=== PATIENT | male | born 1940 | race Caucasian/White ===

== ENCOUNTER 2020-07-05 08:45 | Inpatient (IN) | payer OTHER ==
[~2020-07-05] VITALS: Ht 170.2 cm; Wt 131.0 kg
[2020-07-05 08:49] VITALS: BP 124/45
[2020-07-05 09:34] LABS: BASOPHILS 0.5 % (0.0-2.0); EOSINOPHILS 0.4 % (0.0-3.0); HEMATOCRIT 28.9 % (42.0-52.0); HEMOGLOBIN 9.1 gm/dL (14.0-18.0); LYMPHOCYTES 8.8 % (24.0-44.0); MCH 25.9 pg (26.0-34.0); MCHC 31.6 g/dL (28.0-37.0); MCV 82.2 fL (80.0-100.0); MONOCYTES 7.3 % (1.0-8.0); PLATELET COUNT 332 thou/uL (150-400); RBC 3.51 mil/uL (4.50-6.00); RDW 19.4 % (10.5-14.5); WBC 7.2 thou/uL (4.0-11.0)
[2020-07-05 09:39] LABS: ANION GAP 12 mmol/L (7-16); BUN 61 mg/dL (7-18); CALCIUM 8.8 mg/dL (8.5-10.1); CHLORIDE 106 mmol/L (98-107); CO2 20 mmol/L (21-32); CREATININE 2.7 mg/dL (0.7-1.3); GLUCOSE 169 mg/dL (74-106); POTASSIUM 5.4 mmol/L (3.5-5.1); SODIUM 138 mmol/L (136-145)
[2020-07-05 09:48] LABS: INR 1.46; PROTIME 15.6 Seconds (9.3-11.4)
[2020-07-05 09:53] LABS: ALBUMIN 3.5 g/dL (3.4-5.0); SGOT 36 U/L (15-37); SGPT 30 U/L (30-65); TOTAL BILIRUBIN 0.8 mg/dL (0.2-1.0); TOTAL PROTEIN 6.9 g/dL (6.4-8.2); TROPONIN-I <0.06 ng/mL (<0.06)
[2020-07-05 11:51] LABS: ANISOCYTOSIS 2+; BURR CELLS FEW; OVALOCYTES FEW; POIKILOCYTOSIS 1+; SCHISTOCYTES OCCASIONAL
[2020-07-05 11:56] VITALS: BP 124/45
[2020-07-05 12:45] VITALS: BP 122/44
[2020-07-05 13:40] VITALS: BP 100/72
[2020-07-05 13:43] LABS: % SATURATION 5 % (20-39); IRON 14 ug/dL (65-175); TIBC 302 ug/dL (250-450)
[2020-07-05] MEDS ORDERED: LOSARTAN POTASS50 MG PO (13:43)
[2020-07-05] MEDS ORDERED: GLYBURIDE 5 MG T5 M1 PO (13:43)
--- NOTE | 2020-07-05 14:30 | EKG ---
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
--- NOTE | 2020-07-05 15:14 | NUR ---
RECEIVED PT FROM THE ER; PT IS AXOX4, HOWEVER IS SOMNOLENT FROM MUSCLE RELAXER GIVEN IN ER. PT SON AT THE BEDSIDE. ADMISSION COMPLETED. PT HAS SINUS ZACH/AFIB ON MONITOR. PT IS EXPERIENCING WEAKNESS, UNABLE TO SIT OR STAND FOR LONG TO VOID IN URINAL. PT IS SHORT OF BREATH WITH ACTIVITY. SON REPORTS PT IS WEARING CPA (FROM HOME) EVEN AT REST AT HOME. FALL PRECAUTIONS IN PLACE.
[2020-07-05 16:52] LABS: FOLIC ACID 16.8 ng/mL (8.6-58.9)
--- NOTE | 2020-07-05 17:38 | EKG ---
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1940 Requested By: Tung Rodgers Order Number: [id number] MD: Arash Lima Measurements Intervals [place] Rate: 51 P: [place]: QRS: 17 QRSD: 125 T: 266 QT: 497 QTc: 458 Interpretive Statements Suspect Junctional rhythm Left bundle branch block Compared to ECG 07/05/2020 08:51:23 Junctional rhythm now present Left bundle-branch block now present Atrial fibrillation no longer present ST (T wave) deviation no longer present Electronically Signed On 07-05-2020 17:38:27 CDT by Arash Lima [email or web address] <ELECTRONICALLY SIGNED> By: Arash Lima MD, FACC 07/05/20 1738 [id number] [id number] Arash Lima MD, [facility] /EPI
[2020-07-05 19:18] VITALS: BP 104/40
[2020-07-06 02:06] LABS: GLYCOHEMOGLOBIN (HGB A1C) 6.8 % (4.8-5.6)
--- NOTE | 2020-07-06 03:06 | NUR ---
PT RECEIVED 80MG IV LASIX EARLIEAR IN AFTERNOON WITH NO URINE OUTPUT, NOTIFIED CARDIOLOGY RECEIVED ORDER TO BLADDER SCAN AND AND PLACE FLORES IF NEEDED AND NOTIFY NEPHROLOGY IF NO URINE OUT PUT, VSS, PRN PAIN MED GIVEN FOR C/O HIP PAIN, PT INCON'T OF BOWEL AND BLADDER BEFORE BLADDER SCAN WAS DONE, POST VOID BLADDER SCAN SHOWED 20ML, PT REPOSITIONED NEEDED STATES HIS PAIN IS BETTER IF HE LAYS ON HIS SIDE, SLEEPING WITH OWN CPAP IN USE, WILL CON'T TO MONITOR PER PPOC.
[2020-07-06 04:21] VITALS: BP 141/45
[2020-07-06 05:44] LABS: ABSOLUTE NEUTROPHILS 6.7 thou/uL (1.4-8.2); BASOPHILS 0.1 % (0.0-2.0); HEMATOCRIT 27.3 % (42.0-52.0); HEMOGLOBIN 8.7 gm/dL (14.0-18.0); LYMPHOCYTES 4.6 % (24.0-44.0); MCH 25.9 pg (26.0-34.0); MCHC 31.9 g/dL (28.0-37.0); MCV 80.9 fL (80.0-100.0); MONOCYTES 1.7 % (1.0-8.0); PLATELET COUNT 289 thou/uL (150-400); POLYS 93.6 % (36.0-66.0); RBC 3.37 mil/uL (4.50-6.00); RDW 18.5 % (10.5-14.5); WBC 7.1 thou/uL (4.0-11.0)
[2020-07-06 05:47] LABS: CALCIUM 8.3 mg/dL (8.5-10.1); CREATININE 3.5 mg/dL (0.7-1.3); MAGNESIUM 2.2 mg/dL (1.8-2.4); POTASSIUM 5.1 mmol/L (3.5-5.1)
[2020-07-06 07:18] VITALS: BP 116/56
[2020-07-06 10:54] LABS: URINE BILIRUBIN NEGATIVE (Negative); URINE BLOOD NEGATIVE (Negative); URINE CLARITY CLEAR; URINE COLOR YELLOW; URINE GLUCOSE-RANDOM* NEGATIVE (Negative); URINE KETONES NEGATIVE (Negative); URINE LEUKOCYTES TRACE (Negative); URINE NITRITE NEGATIVE (Negative); URINE PROTEIN (DIPSTICK) NEGATIVE (Negative); URINE SPECIFIC GRAVITY 1.025 (1.005-1.035); URINE UROBILINOGEN 0.2 E.U./dl (0.2-1.0)
[2020-07-06 10:57] LABS: URINE CREATININE-RANDOM* 154.9 mg/dL
[2020-07-06 11:17] VITALS: BP 125/33
--- NOTE | 2020-07-06 11:21 | NUR ---
PT IS AXOX4, PLEASANT. SON AT THE BEDSIDE. DR PASCUAL, DR DIANE, AND DR WHITFIELD CONSULTED. BLADDER SCAN CONDUCTED, PT HAD 270ML. FLORES CATH PLACED AND PT IS ON STRICT I&Os. POC IS PPM PLACED TOMORROW 07/07/20. CONTINUE TO MONITOR BP/HR/BLOOD SUGAR. FALL PRECAUTIONS IN PLACE.
--- NOTE | 2020-07-06 14:01 | NUR ---
met with patient and son at bedside. Patient admits with SOA plan pacemaker in am. Patient currently on oxygen he does not use a home. Patient resides in patio home with . He uses a walker at home and community. Shower has bench. Patient cont to drive. No hx of HH or rehab. Cont to follow for dc needs.
[2020-07-06 15:15] VITALS: BP 120/39
[2020-07-06 19:33] VITALS: BP 141/41
--- NOTE | 2020-07-06 23:20 | NUR ---
ASSUMED PT CARE AT 1900, PT IS AWAKE, ALERT AND ORIENTED, SITTING AT THE EDGE OF BED, FLORES IN PLACE DRAINING ANUPAMA URINE, STILL SOB, ON 5L NC, O2SATS STABLE AT 93-94%, FLORES CATHETER NOTED TO BE DRAINING BLOODY URINE, FLUSHED THE CATHER AND NOTIFIED BUN ICER, NO ORDERS RECEIVED, WILL CONTINUE TO MONITOR, DENIES PAIN, PT RESTING IN BED, CPAP ON, NO DISTRESS NOTED
[2020-07-07] VITALS (8 sets, daily range): BP systolic 100–141; BP diastolic 41–59
[2020-07-07 05:05] LABS: ALBUMIN 3.3 g/dL (3.4-5.0); CALCIUM 8.2 mg/dL (8.5-10.1); CREATININE 4.1 mg/dL (0.7-1.3); PHOSPHORUS 6.3 mg/dL (2.6-4.7)
[2020-07-07 06:07] LABS: HEMATOCRIT 26.4 % (42.0-52.0); HEMOGLOBIN 8.2 gm/dL (14.0-18.0); MCH 25.2 pg (26.0-34.0); MCHC 31.2 g/dL (28.0-37.0); MCV 80.8 fL (80.0-100.0); RBC 3.27 mil/uL (4.50-6.00); RDW 18.9 % (10.5-14.5); WBC 14.2 thou/uL (4.0-11.0)
--- NOTE | 2020-07-07 09:03 | NUR ---
chart review. pt going for pacemaker today. He a & o x 3, able to make his needs now. cm visit rolando at bedside, cm cont to wear face mask and shield during visit. intro to cm and dcp. he reported " lives home with , he is independent with ald's, uses cpap at night. manage own medication and drives vehicle"/rolando. noted he has sitting on edge of bed, stable , has o2 per nc on 3 L. no home oxygen at home, also noted has padilla cath. will need to see if can be weaned off o2 and then dc home no needs with follow up appointments as ordered by MD's.
--- NOTE | 2020-07-07 16:28 | NUR ---
ASSESSMENT CHARTED. PT ALERT AND ORIENTED. VSS. PACEMAKER INCISION C/D/I WITH DERMABOND. PRN PAIN MED GIVEN FOR BUTTOCK PAIN WITH PARTIAL RELIEF. BEDREST AT THIS TIME.
[2020-07-08 00:21] VITALS: BP 116/49
[2020-07-08 03:33] LABS: ALBUMIN 3.3 g/dL (3.4-5.0); CREATININE 3.4 mg/dL (0.7-1.3); PHOSPHORUS 5.8 mg/dL (2.6-4.7); POTASSIUM 4.8 mmol/L (3.5-5.1)
[2020-07-08 04:56] VITALS: BP 128/45
--- NOTE | 2020-07-08 05:40 | NUR ---
PT STATUS POST PACE MAKER PLACEMENT, PT A&OX4, SR ON THE MONITOR, ASSESSMENTS CHARTED, PACEMAKER SITE TO THE LEFT CHEST CDI, NO HEMATOMA, DENIES CHEST PAIN OR PALPITATIONS, PRN PAIN MEDS GIVEN FOR PAIN TO THE BUTTOCKS WITH RELIEF, DENIES CONCERNS, WILL PASS ON REPORT
[2020-07-08 09:14] VITALS: BP 136/51
[2020-07-08 12:45] VITALS: BP 112/51
--- NOTE | 2020-07-08 14:52 | NUR ---
PT ALERT AND ORIENTED. VSS. UP IN THE CHAIR THIS SHIFT. PACE MAKER INCISION C/D/I WITH DERMABOND. SOB NOTED WITH ACTIVITY. RT TREATMENT PROVIDED ORDERED. NO CONCERNS AT THIS TIME.
[2020-07-08 16:00] VITALS: BP 122/62
[2020-07-08 19:03] VITALS: BP 122/47
[2020-07-09 03:49] VITALS: BP 115/59
[2020-07-09 03:57] LABS: ALBUMIN 3.1 g/dL (3.4-5.0); CALCIUM 8.1 mg/dL (8.5-10.1); CREATININE 2.9 mg/dL (0.7-1.3); POTASSIUM 4.7 mmol/L (3.5-5.1)
--- NOTE | 2020-07-09 04:57 | NUR ---
ALERT AND ORIENTED, SR/ APACED ON TELE, PACEMAKER TO THE LEFT CHEST CDI, PRN PAIN MEDS GIVENX1, WITH RELIEF, REMAINS ON 4L O2 NC, CPAP AT NIGHT, O2SAT STABLE IN THE LOW 90S, DENIES CONCERNS, PROGRESSING SLOWLY TOWARDS POC
[2020-07-09 08:00] VITALS: BP 132/56
[2020-07-09 12:42] VITALS: BP 136/59
--- NOTE | 2020-07-09 15:29 | NUR ---
ASSESSMENT CHARTED. PT ALERT AND ORIENTED. VSS. PRN PAIN MED GIVEN WITH PARTIAL RELIEF. UP IN THE CHAIR THIS SHIFT. SOB NOTED WITH ACTIVITY. PT REPORT FEELING MUCH BETTER TODAY. PT PROGRESSING WELL TOWARDS DISCHARGE GOAL.
[2020-07-09 16:08] VITALS: BP 125/62
[2020-07-09 20:10] VITALS: BP 170/62
[2020-07-10 05:32] VITALS: BP 179/62
[2020-07-10 08:00] VITALS: BP 151/58
--- NOTE | 2020-07-10 08:15 | NUR ---
HAD STOOLS THIS SHIFT,UP TO THE BEDSIDE COMMODE.PT ASKED FOR IMMODIUM,CONTACTED [facility]RE[facility]IC[facility].UNABLE TO OBTAIN.PT AWARE.
[2020-07-10 09:38] LABS: CALCIUM 8.3 mg/dL (8.5-10.1); CREATININE 2.2 mg/dL (0.7-1.3); POTASSIUM 3.8 mmol/L (3.5-5.1)
[2020-07-10 11:10] VITALS: BP 135/49
--- NOTE | 2020-07-10 15:17 | NUR ---
PT ALERT AND ORIENTED. PLEASANT AND COOPERATIVE WITH CARES. VSS. PRN PAIN MED GIVEN WITH PARTIAL RELIEF. UP IN THE CHAIR THIS SHIFT. EVALUATED BY PT/OT. NO CONCERNS AT THIS TIME. PT PROGRESSING WELL TOWARDS DISCHARGE GOAL.
[2020-07-10 15:30] VITALS: BP 128/50
--- NOTE | 2020-07-10 17:04 | NUR ---
met with patient and discussed post acute care. Patient reports he does not think he needs post acute care. Patient reports his son and able to assist at discharge. no steps at home and has a rolator walker. Gave [employer] list to review if he changes his mind.
[2020-07-10 19:50] VITALS: BP 178/60
[2020-07-11 04:00] VITALS: BP 129/53
--- NOTE | 2020-07-11 04:44 | NUR ---
PAIN WELL CONTROLLED.ALERT,ORIENTED.FLORES TO DD.MONITOR SHOWS V PACED.O2 2L NC.POC CONTINUED.
--- NOTE | 2020-07-11 09:32 | NUR ---
PATIENT UP TO CHAIR FOR BREAKFAST. PRN HYDROCODONE GIVEN FOR BUTTOCK PAIN. PATIENT REMAINS ON 2L NC. CONTINUOUS PULSE OX MONTIOR. ONETIME DOSE OF IV LASIX ORDERED BY DR. DIANE. PLAN FOR PATIENT TO DISCHARGE TO REHAB WHEN FACILITY AVAILABLE. FALL PRECAUTIONS IN PLACE.
[2020-07-11 09:34] VITALS: BP 181/58
--- NOTE | 2020-07-11 12:21 | NUR ---
spoke with patient and son at bedside. Patient reports he wants post acute care after speaking with phys and son. Interest in [facility]. Referrals sent for review. Son is going to review facilities on line. Notified RN for COVID test.
[2020-07-11] MEDS ORDERED: DEMADEX20 MG PO (12:34)
[2020-07-11] MEDS ORDERED: METOPROLOL SUCC50 MG PO (12:34)
[2020-07-11] MEDS ORDERED: LIPITOR10 MG PO (12:34)
[2020-07-11] MEDS ORDERED: ELIQUIS2.5 MG PO (12:34)
[2020-07-11] MEDS ORDERED: NORVASC5 MG PO (12:34)
[2020-07-11] MEDS ORDERED: PROTONIX40 M2 PO (12:34)
[2020-07-11] MEDS ORDERED: HYDRALAZINE 5050 MG PO (12:34)
[2020-07-11] MEDS ORDERED: BAYER CHEWABLE81 MG PO (12:34)
[2020-07-11] MEDS ORDERED: PACERONE 200 M200 M1 PO (12:34)
[2020-07-11] MEDS ORDERED: PROTONIX40 M4 PO (12:34)
[2020-07-11 12:40] VITALS: BP 151/63
--- NOTE | 2020-07-11 16:17 | NUR ---
FAXED REFERRAL TO [facility] SPOKE WITH BREANA IN ADM THEY CAN ACCEPT AND SHE IS GOING TO CALL PT'S SON. FAXED REFERRAL TO [facility] SPOKE WITH BLANCA IN ADN SHE CAN ACCEPT ALSO. /SON WILL BE NOTIFIED THAT BOTH FACILITIES CAN ACCEPT AND WILL WAIT FOR THEIR DECISION.
--- NOTE | 2020-07-11 17:19 | NUR ---
spoke with son first choice is [facility]. Left message for facility to seek auth.
--- NOTE | 2020-07-11 17:56 | NUR ---
FLORES DISCONTINUED AT 1730
[2020-07-11 20:15] VITALS: BP 171/78
[2020-07-12 00:18] VITALS: BP 178/64
[2020-07-12 00:26] VITALS: BP 178/64
[2020-07-12 04:54] VITALS: BP 149/56
--- NOTE | 2020-07-12 05:29 | NUR ---
patient aox4 makes needs known. patient gets soa with activites. patient incontient this shift pericare and barrier cream applied as needed. patient in bed asleep at this time breathing regular and unlaboured.
[2020-07-12 08:00] VITALS: BP 161/57
[2020-07-12 09:44] LABS: HEMATOCRIT 30.8 % (42.0-52.0); HEMOGLOBIN 9.6 gm/dL (14.0-18.0); MCH 24.9 pg (26.0-34.0); MCHC 31.1 g/dL (28.0-37.0); RBC 3.85 mil/uL (4.50-6.00); RDW 18.5 % (10.5-14.5); WBC 11.7 thou/uL (4.0-11.0)
[2020-07-12 09:53] LABS: CALCIUM 8.1 mg/dL (8.5-10.1); CREATININE 1.9 mg/dL (0.7-1.3)
[2020-07-12 10:02] LABS: POTASSIUM 2.8 mmol/L (3.5-5.1)
[2020-07-12] MEDS ORDERED: KLOR-CON M2020 MEQ PO (10:20)
--- NOTE | 2020-07-12 11:15 | NUR ---
PATIENT STATING HE FEELS PRESSURE WHEN URINATING. NOTIFED DR. DIANE. GIVEN DOSE OF FLOMAX AND BLADDER SCANNED. BLADDER SCAN AMOUNT [address] ORDERS TO PL[address] FLORES AND CONSULT UROLOGY. UROLOGY TO SEE PATIENT TODAY. 16FR FLORES PLACED WITH NO DIFFICULTIES. 1400 URINE OUT IMMEDIATELY POST INSERTION.
[2020-07-12] MEDS ORDERED: NORVASC10 MG PO (11:50)
[2020-07-12] MEDS ORDERED: LEVSIN0.125 MG PO (11:50)
[2020-07-12 12:16] VITALS: BP 133/49
[2020-07-12 13:35] LABS: URINE BILIRUBIN NEGATIVE (Negative); URINE BLOOD 3+ (Negative); URINE CLARITY CLEAR; URINE COLOR LIGHT PINK; URINE GLUCOSE-RANDOM* TRACE (Negative); URINE KETONES NEGATIVE (Negative); URINE LEUKOCYTES 1+ (Negative); URINE NITRITE NEGATIVE (Negative); URINE PROTEIN (DIPSTICK) NEGATIVE (Negative); URINE SPECIFIC GRAVITY 1.015 (1.005-1.035); URINE UROBILINOGEN 0.2 E.U./dl (0.2-1.0)
[2020-07-12 13:43] LABS: URINE RBC >20 Many /HPF (0-2)
[2020-07-12 13:44] LABS: BACTERIA 1-9 Few /HPF (None Seen); MUCUS 0-3 Light strn/LPF (None Seen); URINE WBC 0-5 Rare /HPF (0-5)
[2020-07-12 13:46] LABS: YEAST Present (None Seen)
[2020-07-12 13:47] LABS: CRYSTALS None Seen /LPF (None Seen); HYALINE CASTS 0-3 Few /LPF (None Seen); SQUAMOUS None Seen /LPF (0-3)
--- NOTE | 2020-07-12 15:18 | NUR ---
REMIV RECEIVED AUTH FAXED DC ORDERS/SUMMARY TO FACILITY SPOKE WITH BREANA IN ADM SHE RECEIVED ORDERS AND ARRANGED WC VAN FOR 1500 TODAY. PT'S SON NOTIFIED OF DC AND TIME OF TRANSPORT. UNIT NOTIFIED AND CHART COPY PER US. RN TO CALL REPORT TO [phone].
--- NOTE | 2020-07-12 16:05 | NUR ---
PATIENT DISCHARGED TO [facility]. REPORT CALLED TO RECIEVING RN. ALL BELONGINGS SENT WITH PATIENT. PATIENT D/C'D WITH FLORES IN PLACE PER UROLOGY ORDERS. TELE MONTIOR REMOVED. IV DISCONTINUED. PATIENT DENIED ANY NEEDS OR CONCERNS AT TIME OF DISCHARGE.
[2020-07-12] MEDS ORDERED: CEPHALEXIN500 MG PO (18:25)
--- NOTE | 2020-07-13 11:21 | NUR ---
Called and spoke to patient's now nurse at [facility] at [phone] by the name of Uziel updating him that the attending hospitalists has added Keflex 500mg PO BID for 14 days related to Urine Culture results. Order downloaded and sent to attention Uziel with fax number provided by Uzeil of: [phone].
--- NOTE | 2020-07-14 09:14 | P ---
[facility] [place] [address] PROCEDURE REPORT Name: TYREE ACOSTA Room #: 214-P [facility] IN M.R.#: [id number] Admission: 07/05/20 Attend Phys: Christal Dominguez MD Discharge: 07/12/20 Date of : 36 Report #: [id number] THIS REPORT FOR: cc: Ramon Albert Vincent R. DO Couchonnal, Luis F. MD ~ DATE OF SERVICE: 07/07/2020 PACEMAKER IMPLANTATION PREOPERATIVE DIAGNOSES: 1. Atrial fibrillation. 2. Sick sinus syndrome. 3. Tachycardia-bradycardia syndrome. 4. High-degree AV block. PROCEDURES PERFORMED: Dual-chamber pacemaker implantation. HISTORY: The patient an 80-year-old male recently diagnosed with atrial fibrillation and diastolic heart failure, who underwent a VALERIE-guided cardioversion at [facility]. He was noted to have some periods of bradycardia while there and his beta blockers were held. In followup, he was noted to be back in sinus rhythm with a long first-degree AV block. He presented to [facility] with acute on chronic diastolic heart failure in the setting of atrial fibrillation with a bradycardic response in the 30s and 40s. He also had acute renal failure. He is here for dual chamber pacemaker implantation. ANESTHESIA: The patient underwent MAC anesthesia with no anesthesia related complications. DESCRIPTION OF PROCEDURE: The patient underwent informed consent. We discussed the details of the procedure including the risks, which include but not limited to bleeding, infection, vascular damage, cardiac perforation, and pneumothorax. He understood these risks and is willing to proceed. The patient was brought to EP laboratory in fasting and sedated state, prepped and draped in a sterile fashion, underwent a venogram showing patency of left axillary vein with 5 mL of contrast. Next, he received IV vancomycin. Next, the lidocaine was injected below the level of left clavicle. Incision was made, pocket was created over prepectoral fascia and access was obtained twice to left axillary vein using the extrathoracic approach with sheaths positioned using the modified Seldinger technique. Next, under fluoroscopy, leads were positioned in the right ventricular apex and right atrial appendage. Surprisingly, the patient was noted to be back in sinus rhythm. His previous EKG showed that he [address] [address] PROCEDURE REPORT Name: TYREE ACOSTA Room #: 214-P [facility] IN .R.#: [id number] Admission: 07/05/20 Attend Phys: Christal Dominguez MD Discharge: 07/12/20 Date of : 36 Report #: [id number] was either in AFib or had atrial standstill. It was really hard to determine, but currently he is in sinus. The leads were sutured to the prepectoral fascia. Device connected. Tug test performed. Pocket was irrigated with vancomycin and the pocket closed in 2 layers. Surgical glue was placed to outer skin layer. The patient awoke neurologically and hemodynamically intact. No complications and no significant bleeding. The implanted pacemaker and leads were Medtronic device. The generator was a Populistronic Azure0, serial #[id number]. The atrial lead was a 5076, 52 cm, serial #[id number] and the RV lead was a 5076, 58 cm, serial #[id number]. Atrial lead demonstrated P waves of 0.6 millivolts, pacing impedance 380 ohms and the pacing threshold of 1 volt at 0.4 milliseconds. RV lead demonstrated R waves of 10 millivolts, pacing impedance of 630 ohms, pacing threshold 0.7 volts at 0.4 milliseconds. The device was programmed to the AAIR/DDDR 60-130 mode. CONCLUSIONS: 1. Successful dual-chamber pacemaker implantation. 2. Satisfactory atrial and ventricular pacing and sensing thresholds. <ELECTRONICALLY SIGNED> By: Tung Rodgers MD 07/14/20 0914 [id number] [id number] Tung Rodgers MD /nt
== END 2020-07-12 16:09 | DRG 242 ==
LOC: ER 08:45 → 2N 11:17 → EROBS 11:17 → 2N 12:35
PROVIDERS: Anesthesiology; Emergency Medicine; Hospitalist; Nurse Practitioner; Nurse Practitioner Family; ADMIT Hospitalist; ATTEND Hospitalist
PROC: 5A0935A Assistance with Respiratory Ventilation, Less than 24 Consecutive Hours, High Flow/Velocity Cannula (ICD-10-PCS; principal; 2020-07-05)
PROC: 5A09357 Assistance with Respiratory Ventilation, Less than 24 Consecutive Hours, Continuous Positive Airway Pressure (ICD-10-PCS; principal; 2020-07-05)
PROC: 5A0935A Assistance with Respiratory Ventilation, Less than 24 Consecutive Hours, High Flow/Velocity Cannula (ICD-10-PCS; 2020-07-06)
PROC: 5A0935A Assistance with Respiratory Ventilation, Less than 24 Consecutive Hours, High Flow/Velocity Cannula (ICD-10-PCS; 2020-07-07)
PROC: 0JH606Z Insertion of Pacemaker, Dual Chamber into Chest Subcutaneous Tissue and Fascia, Open Approach (ICD-10-PCS; 2020-07-07)
PROC: 02HK3JZ Insertion of Pacemaker Lead into Right Ventricle, Percutaneous Approach (ICD-10-PCS; 2020-07-07)
PROC: 02H63JZ Insertion of Pacemaker Lead into Right Atrium, Percutaneous Approach (ICD-10-PCS; 2020-07-07)
PROC: B51N1ZZ Fluoroscopy of Left Upper Extremity Veins using Low Osmolar Contrast (ICD-10-PCS; 2020-07-07)
PROC: 5A09357 Assistance with Respiratory Ventilation, Less than 24 Consecutive Hours, Continuous Positive Airway Pressure (ICD-10-PCS; 2020-07-07)
PROC: 5A0935A Assistance with Respiratory Ventilation, Less than 24 Consecutive Hours, High Flow/Velocity Cannula (ICD-10-PCS; 2020-07-08)
PROC: 5A09357 Assistance with Respiratory Ventilation, Less than 24 Consecutive Hours, Continuous Positive Airway Pressure (ICD-10-PCS; 2020-07-09)
PROC: 5A0935A Assistance with Respiratory Ventilation, Less than 24 Consecutive Hours, High Flow/Velocity Cannula (ICD-10-PCS; 2020-07-09)
PROC: 5A09357 Assistance with Respiratory Ventilation, Less than 24 Consecutive Hours, Continuous Positive Airway Pressure (ICD-10-PCS; 2020-07-10)
PROC: 5A0935A Assistance with Respiratory Ventilation, Less than 24 Consecutive Hours, High Flow/Velocity Cannula (ICD-10-PCS; 2020-07-10)
PROC: 5A0935A Assistance with Respiratory Ventilation, Less than 24 Consecutive Hours, High Flow/Velocity Cannula (ICD-10-PCS; 2020-07-11)
PROC: 5A09357 Assistance with Respiratory Ventilation, Less than 24 Consecutive Hours, Continuous Positive Airway Pressure (ICD-10-PCS; 2020-07-11)
PROC: 5A09357 Assistance with Respiratory Ventilation, Less than 24 Consecutive Hours, Continuous Positive Airway Pressure (ICD-10-PCS; 2020-07-12)
DX: I13.0 Hypertensive heart and chronic kidney disease with heart failure and stage 1 through stage 4 chronic kidney disease, or unspecified chronic kidney disease (principal); I50.33 Acute on chronic diastolic (congestive) heart failure; J96.01 Acute respiratory failure with hypoxia; N17.9 Acute kidney failure, unspecified; E87.2 Acidosis; I44.2 Atrioventricular block, complete; N39.0 Urinary tract infection, site not specified; Z68.42 Body mass index [BMI] 45.0-49.9, adult; I49.5 Sick sinus syndrome; I48.0 Paroxysmal atrial fibrillation; G89.29 Other chronic pain; M54.9 Dorsalgia, unspecified; M54.2 Cervicalgia; N18.9 Chronic kidney disease, unspecified; E87.5 Hyperkalemia; D64.9 Anemia, unspecified; I65.23 Occlusion and stenosis of bilateral carotid arteries; E66.9 Obesity, unspecified; G47.33 Obstructive sleep apnea (adult) (pediatric); I25.10 Atherosclerotic heart disease of native coronary artery without angina pectoris; Z20.822 Contact with and (suspected) exposure to COVID-19; E78.5 Hyperlipidemia, unspecified; E11.22 Type 2 diabetes mellitus with diabetic chronic kidney disease; R33.9 Retention of urine, unspecified; R53.81 Other malaise; T47.4X5A Adverse effect of other laxatives, initial encounter; Y92.89 Other specified places as the place of occurrence of the external cause; Z95.1 Presence of aortocoronary bypass graft; Z87.891 Personal history of nicotine dependence; Z82.49 Family history of ischemic heart disease and other diseases of the circulatory system
CPT/HCPCS: 10081; 62110; 62900; 70005

== ENCOUNTER 2020-08-21 09:19 | Inpatient (IN) | payer OTHER ==
[~2020-08-21] VITALS: Ht 170.2 cm; Wt 94.3 kg
[~2020-08-21 09:19] MED LIST: BAYER CHEWABLE81 MG PO; CEPHALEXIN500 MG PO; DEMADEX20 MG PO; ELIQUIS2.5 MG PO; GLYBURIDE 5 MG T5 M1 PO; HYDRALAZINE 5050 MG PO; KLOR-CON M2020 MEQ PO; LEVSIN0.125 MG PO; LIPITOR10 MG PO; LOSARTAN POTASS50 MG PO; METOPROLOL SUCC50 MG PO; NORVASC10 MG PO; NORVASC5 MG PO; PACERONE 200 M200 M1 PO; PROTONIX40 M2 PO; PROTONIX40 M4 PO
[2020-08-21 09:20] VITALS: BP 130/60
[2020-08-21 10:19] LABS: ABSOLUTE NEUTROPHILS 8.6 thou/uL (1.4-8.2); HEMOGLOBIN 9.4 gm/dL (14.0-18.0)
[2020-08-21 10:20] LABS: BASOPHILS 0.5 % (0.0-2.0); EOSINOPHILS 0.2 % (0.0-3.0); HEMATOCRIT 30.5 % (42.0-52.0); LYMPHOCYTES 9.7 % (24.0-44.0); MCH 23.7 pg (26.0-34.0); MCV 76.7 fL (80.0-100.0); MONOCYTES 7.9 % (1.0-8.0); PLATELET COUNT 435 thou/uL (150-400); POLYS 81.7 % (36.0-66.0); RBC 3.97 mil/uL (4.50-6.00); RDW 19.9 % (10.5-14.5); WBC 10.6 thou/uL (4.0-11.0)
[2020-08-21 10:33] LABS: ANION GAP 6 mmol/L (7-16); BUN 19 mg/dL (7-18); CALCIUM 9.3 mg/dL (8.5-10.1); CHLORIDE 99 mmol/L (98-107); CO2 26 mmol/L (21-32); CREATININE 1.6 mg/dL (0.7-1.3); GLUCOSE 290 mg/dL (74-106); POTASSIUM 4.5 mmol/L (3.5-5.1); SODIUM 131 mmol/L (136-145)
[2020-08-21 10:44] LABS: ALBUMIN 3.2 g/dL (3.4-5.0); SGOT 12 U/L (15-37); SGPT 20 U/L (16-63); TOTAL BILIRUBIN 0.9 mg/dL (0.2-1.0); TOTAL PROTEIN 7.7 g/dL (6.4-8.2); TROPONIN-I <0.06 ng/mL (<0.06)
[2020-08-21 10:48] LABS: ANISOCYTOSIS 2+; PLATELET ESTIMATE NORMAL; POLYCHROMASIA SLIGHT
[2020-08-21] MEDS ORDERED: TAMSULOSIN HCL0.4 MG PO (12:52)
[2020-08-21 14:10] VITALS: BP 126/104
[2020-08-21 14:48] VITALS: BP 139/52
[2020-08-21] MEDS ORDERED: KLOR-CON 10 ER10 MEQ PO (15:15)
[2020-08-21 15:22] VITALS: BP 115/69
--- NOTE | 2020-08-21 17:32 | EKG ---
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 : 1940 Requested By: Tyree Mendoza Order Number: [id number] MD: Jamal Pineda Measurements Intervals [place] Rate: 89 P: [place]: QRS: 27 QRSD: 116 T: 260 QT: 388 QTc: 473 Interpretive Statements Atrial fibrillation Nonspecific intraventricular conduction delay Nonspecific ST and T wave abnormality Compared to ECG 07/05/2020 16:54:26 Atrial fibrillation has replaced junctional bradycardia Electronically Signed On 08-21-2020 17:32:01 CDT by Jamal Pineda [email or web address] <ELECTRONICALLY SIGNED> By: Jamal Pineda MD, [facility] 08/21/20 1732 1 Jamal Pineda MD, [facility] /EPI
--- NOTE | 2020-08-21 18:11 | NUR ---
1509- PT ARRIVED TO ROOM VIA CART FROM ER. PT VERY SOB WITH TRANSFER FROM CART TO BED. PT ARRIVED ON 6L. PT STATES HE HAD PACEMAKER PLACED 6-7 WEEKS AGO AND HAS RECENTLY HAD INCREASED SOB AND SWELLING TO HIS BILAT LOWER EXTREMITIES. PT A&OX4. PT SIGNED HIS OWN CONSENTS ON CHART.
[2020-08-21 19:52] VITALS: BP 161/49
[2020-08-21 23:41] VITALS: BP 113/39; BP 145/56
[2020-08-22 04:36] VITALS: BP 124/52
[2020-08-22 04:53] LABS: ABSOLUTE NEUTROPHILS 7.6 thou/uL (1.4-8.2); BASOPHILS 0.5 % (0.0-2.0); EOSINOPHILS 0.8 % (0.0-3.0); HEMATOCRIT 28.4 % (42.0-52.0); HEMOGLOBIN 8.9 gm/dL (14.0-18.0); LYMPHOCYTES 17.8 % (24.0-44.0); MCH 24.2 pg (26.0-34.0); MCHC 31.5 g/dL (28.0-37.0); MCV 76.8 fL (80.0-100.0); MONOCYTES 10.2 % (1.0-8.0); PLATELET COUNT 414 thou/uL (150-400); POLYS 70.7 % (36.0-66.0); RDW 20.3 % (10.5-14.5); WBC 10.8 thou/uL (4.0-11.0)
[2020-08-22 05:14] LABS: CALCIUM 8.9 mg/dL (8.5-10.1); CREATININE 1.6 mg/dL (0.7-1.3); MAGNESIUM 2.1 mg/dL (1.8-2.4); POTASSIUM 4.3 mmol/L (3.5-5.1)
[2020-08-22 07:42] VITALS: BP 139/49
--- NOTE | 2020-08-22 10:50 | NUR ---
ASSESSMENT: CM REVIEWED CHART AND SPOKE WITH PATIENT. PT WAS ADMITTED DUE TO CHF EXACERBATION. PT WAS RECENTLY DISCHARGE FROM 07/12 TO [facility]. PT REPORTS THAT HE WAS CURRENTLY AT HOME WHERE HE LIVES WITH HIS IVETTE AND WAS RECEIVING HOME HEALTH THROUGH [facility]. PT REPORTS LIVING IN A PATIO HOME THAT HAS NO STEPS TO ENTER OR ONCE INSIDE. PT REPORTS THAT HE HAS A ROLLATER WALKER WELL A FWW TO ASSIST WITH AMBULATION. PT REPORTS HAVING A SHOWER CHAIR. PT STATES THAT HE IS HOPEFUL HE WILL BE ABLE TO RETURN HOME WITH HH. CM CONTACTED [facility] TO NOTIFY THEM PT IS HERE AND FAXED CLINICAL INFORMATION. PT CONTINUES TO DIURESIS AND IS CURRENTLY ON OXYGEN THAT HE DOES NOT HAVE AT HOME. PHYSICAL THERAPY IS TO EVALUATE PATIENT AND EVAL IS PENDING. CM WILL CONTINUE TO FOLLOW TO ASSIST NEEDED.
[2020-08-22 15:12] VITALS: BP 122/50
[2020-08-22 16:40] VITALS: BP 142/58
--- NOTE | 2020-08-22 18:02 | NUR ---
ASSUMED CARE SHIFT CHANGE. VSS. DENIES PAIN. O2 SATS WNL 6L THIS AM, TITRATED TO 4L. DENIES SOB. PT UP SBA RAFAEL WELL. DIURESING APPROPRIATELY. FAMILY AT BEDSIDE, UPDATED ON POC. PT DENIES NEEDS CURRENTLY. PLAN FOR DC ONCE MEDICALLY STABLE. CONT POC. WILL PASS ON REPORT TO DAVION RECIO.
[2020-08-22 20:15] VITALS: BP 122/59
[2020-08-23 04:45] VITALS: BP 122/51
[2020-08-23 05:48] LABS: CALCIUM 8.3 mg/dL (8.5-10.1); CREATININE 1.6 mg/dL (0.7-1.3); POTASSIUM 3.9 mmol/L (3.5-5.1)
[2020-08-23 07:58] VITALS: BP 139/60
[2020-08-23 11:21] VITALS: BP 106/72
--- NOTE | 2020-08-23 14:17 | NUR ---
Therapy evals in process and recommend home with HH care. Patient on service with [facility] prior to admission. Updated [facility].
[2020-08-23 16:08] VITALS: BP 122/53
[2020-08-23 19:40] VITALS: BP 133/44
[2020-08-24 03:45] VITALS: BP 124/43
--- NOTE | 2020-08-24 03:59 | NUR ---
SLEPT MOST OF SHIFT ON CPAP. PATIENT DANGLES TO USE URINAL AND TURNS SELF. WORKING ON GOALS AND PLAN OF CARE FOR NOC. PLANS FOR CARDIOVERSION THIS AM. DENIES COMPLAINTS OF PAIN AND STATES HIS BREATHING IS BETTER. CONTINUE TO ASSES CLOSELY.
[2020-08-24 05:12] LABS: CALCIUM 8.7 mg/dL (8.5-10.1); CREATININE 1.5 mg/dL (0.7-1.3); POTASSIUM 3.7 mmol/L (3.5-5.1)
--- NOTE | 2020-08-24 07:35 | NUR ---
PT PICKED UP AROUND 0715 FOR HIS PROCEDURE THIS MORNING. PT ALERT AND ORIENTED TIMES FOUR. DENIES PAIN AT THIS TIME. WILL CONTINUE TO MONITOR.
[2020-08-24] MEDS ORDERED: K-DUR 20 MEQ T20 MEQ PO (08:36)
[2020-08-24] MEDS ORDERED: LASIX 40 MG TAB40 M1 PO (08:36)
[2020-08-24 09:05] VITALS: BP 153/54
[2020-08-24 09:53] LABS: HEMATOCRIT 28.7 % (42.0-52.0); HEMOGLOBIN 8.8 gm/dL (14.0-18.0); MCH 23.8 pg (26.0-34.0); MCHC 30.6 g/dL (28.0-37.0); MCV 77.9 fL (80.0-100.0); RBC 3.69 mil/uL (4.50-6.00); RDW 20.2 % (10.5-14.5); WBC 8.7 thou/uL (4.0-11.0)
[2020-08-24 11:40] VITALS: BP 128/90
--- NOTE | 2020-08-24 15:05 | NUR ---
Case discussed with the care team. Possible dc home with resumption of hh services tomorrow. Pt had cardioversion today and need 2liters o2 after. Diuresing this afternoon and hoping to wean off o2 prior to dc. CM to fax dc orders/hh to [facility] tomorrow.
[2020-08-24 16:00] VITALS: BP 149/56
[2020-08-24 20:31] VITALS: BP 150/54
[2020-08-25 04:31] LABS: HEMATOCRIT 30.4 % (42.0-52.0); HEMOGLOBIN 9.4 gm/dL (14.0-18.0); MCH 23.8 pg (26.0-34.0); MCHC 31.1 g/dL (28.0-37.0); MCV 76.7 fL (80.0-100.0); RBC 3.96 mil/uL (4.50-6.00); RDW 19.8 % (10.5-14.5); WBC 8.7 thou/uL (4.0-11.0)
[2020-08-25 04:40] LABS: CALCIUM 8.8 mg/dL (8.5-10.1); CREATININE 1.4 mg/dL (0.7-1.3)
[2020-08-25 04:49] VITALS: BP 138/57
[2020-08-25 07:50] VITALS: BP 156/54
--- NOTE | 2020-08-25 11:33 | P ---
[facility] [place] [address] PROCEDURE REPORT Name: TYREE ACOSTA Room #: 215-P ADM IN M.R.#: [id number] Admission: 08/21/20 Attend Phys: Clayton Reddy MD Discharge: Date of : 36 Report #: [id number] THIS REPORT FOR: cc: Ramon Albert Vincent R. DO Couchonnal, Luis F. MD ~ DOC #: [id number] Tung Rodgers MD CARDIOVERSION PREOPERATIVE DIAGNOSIS: Atrial fibrillation. POSTOPERATIVE DIAGNOSIS: Atrial fibrillation. PROCEDURE PERFORMED: 1. Discontinue cardioversion. 2. Pacemaker reprogramming. DESCRIPTION OF PROCEDURE: The patient underwent informed consent. He was prepped and draped in standard fashion. His Medtronic pacemaker was interrogated showing that he was in AFib. The patient was then sedated by the anesthesiology service, underwent 200 joule synchronized cardioversion with quaker of sinus rhythm. His pacemaker was reprogrammed back to its original settings and demonstrated that he was in sinus rhythm. There were no procedure related complications. CONCLUSION: Successful discontinue cardioversion with quaker of sinus rhythm. Tung Rodgers MD [facility]/AMI <ELECTRONICALLY SIGNED> By: Tung Rodgers MD 08/25/20 1133 0700 [id number] Tung Rodgers MD /samantha
[2020-08-25 12:00] VITALS: BP 132/46
--- NOTE | 2020-08-25 12:18 | NUR ---
PT ALERT AND ORIENTED TIMES FOUR. VSS. 2L PER NC. PT DENIES PAIN/SOA. PT TOLERATES MEDS AND MEALS. PT UP WITH STANDBY ASSIST, PLANS FOR DISCHARGE TODAY. WILL CONTINUE TO MONITOR.
--- NOTE | 2020-08-25 12:27 | NUR ---
CM FAXED ORDERS TO [facility] FOR -[phone]. LORELEI CONFIRMED RECEIPT. WILL CALL CM BACK W/DELIVERY TIME. PT NOTIFIED O2 WILL DELIVERED TO HIS ROOM AND [facility] WILL F/U TO SCHEDULED TIME TO GO TO HOME TO SET UP EQUIPMENT.
--- NOTE | 2020-08-25 14:05 | NUR ---
RECEIVED PT FROM THE DAY NURSE. PT IS AXOX4, PLEASANT, UP IN CHAIR EATING LUNCH. VSS, AFEBRILE, PACED ON MONITOR. POC IS TO DISCHARGE PT TODAY TO HOME WITH HOME OXYGEN. CASE MGMT CONSULTED. DR DIANE CONSULTED. DISCHARGE EDUCATION CONDUCTED. PT AND PT COMMUNICATED UNDERSTANDING. LOW FALL PRECAUTIONS. NO CONCERNS AT THIS TIME.
[2020-08-25 15:40] VITALS: BP 114/48
[2020-08-25 16:21] VITALS: BP 132/46
[2020-08-25 17:09] VITALS: BP 132/46
== END 2020-08-25 17:37 | disposition home health service (06) | DRG 291 ==
LOC: ER 09:19 → EROBS 12:03 → 2N 12:03
PROVIDERS: Emergency Medicine; Nurse Practitioner; ADMIT Internal Medicine; ATTEND Internal Medicine
PROC: 5A09357 Assistance with Respiratory Ventilation, Less than 24 Consecutive Hours, Continuous Positive Airway Pressure (ICD-10-PCS; principal; 2020-08-21)
PROC: 5A2204Z Restoration of Cardiac Rhythm, Single (ICD-10-PCS; principal; 2020-08-21)
PROC: 5A09357 Assistance with Respiratory Ventilation, Less than 24 Consecutive Hours, Continuous Positive Airway Pressure (ICD-10-PCS; 2020-08-22)
PROC: 5A09357 Assistance with Respiratory Ventilation, Less than 24 Consecutive Hours, Continuous Positive Airway Pressure (ICD-10-PCS; 2020-08-23)
PROC: 5A09357 Assistance with Respiratory Ventilation, Less than 24 Consecutive Hours, Continuous Positive Airway Pressure (ICD-10-PCS; 2020-08-25)
DX: I13.0 Hypertensive heart and chronic kidney disease with heart failure and stage 1 through stage 4 chronic kidney disease, or unspecified chronic kidney disease (principal); I50.33 Acute on chronic diastolic (congestive) heart failure; J96.01 Acute respiratory failure with hypoxia; J18.9 Pneumonia, unspecified organism; N17.9 Acute kidney failure, unspecified; I48.91 Unspecified atrial fibrillation; G47.33 Obstructive sleep apnea (adult) (pediatric); E78.5 Hyperlipidemia, unspecified; G89.29 Other chronic pain; M54.9 Dorsalgia, unspecified; I25.10 Atherosclerotic heart disease of native coronary artery without angina pectoris; I49.5 Sick sinus syndrome; N18.9 Chronic kidney disease, unspecified; E11.22 Type 2 diabetes mellitus with diabetic chronic kidney disease; I65.23 Occlusion and stenosis of bilateral carotid arteries; E66.9 Obesity, unspecified; N40.0 Benign prostatic hyperplasia without lower urinary tract symptoms; R53.81 Other malaise; Z20.822 Contact with and (suspected) exposure to COVID-19; Z95.1 Presence of aortocoronary bypass graft; Z68.32 Body mass index [BMI] 32.0-32.9, adult; Z87.891 Personal history of nicotine dependence; Z79.899 Other long term (current) drug therapy
CPT/HCPCS: 10081; 62110; 62900